=== PATIENT | female | born 1980 | race Hispanic/Latino ===

== ENCOUNTER 2024-01-05 13:52 | Day surgery (SDC) | payer BC ==
[2024-01-05] MEDS ORDERED: Bupivacaine HCl 0.5%/Epinephrine 1:200,000/PF 30 ml Vial ONE (14:37)
[2024-01-05] MEDS ORDERED: Dexamethasone 4 mg/ml Vial ONE (14:47)
[2024-01-05] MEDS ORDERED: Fentanyl 250 MCG/5 ML VIAL ONE (14:47)
[2024-01-05] MEDS ORDERED: PROPOFOL 20 ML ONE ×2 (14:47→16:37)
[2024-01-05] MEDS ORDERED: Midazolam HCl 2 mg/2 ml Vial ONE (14:47)
[2024-01-05] MEDS ORDERED: Lidocaine 2% PF 5 ML VIAL ONE (14:47)
[2024-01-05] MEDS ORDERED: Ondansetron PF 4 MG/2 ML Vial ONE (14:47)
[2024-01-05] MEDS ORDERED: SUGAMMADEX SODIUM 200 MG/2 ML VIAL ONE (16:25)
[2024-01-05] MEDS ORDERED: fentaNYL 50 mcg/mL 1 mL Vial ONE (18:04)
[2024-01-05] MEDS ORDERED: Ketorolac Tromethamine 30 MG (1 mL) VIAL ONE (18:25)
[2024-01-05] MEDS ORDERED: HYDROmorphone 0.5 MG/0.5 ML SYRINGE ONE (19:04)
== END 2024-01-05 20:35 | disposition home or self-care (01) ==
LOC: CSHSDC/OP 13:52
PROVIDERS: ATTEND Surgery
PROC: 0FT44ZZ Resection of Gallbladder, Percutaneous Endoscopic Approach (ICD-10-PCS; principal; 2024-01-05)
DX: K80.12 Calculus of gallbladder with acute and chronic cholecystitis without obstruction (principal); Z90.710 Acquired absence of both cervix and uterus; Z88.8 Allergy status to other drugs, medicaments and biological substances; Z88.5 Allergy status to narcotic agent
CPT/HCPCS: 88304; C1889; J1100; J1170; J1885; J2250; J2405; J2704; J3010